=== PATIENT | female | born 1965 | race Two or more races ===

== ENCOUNTER 2017-12-21 19:23 | Emergency (ER) | payer OTHER ==
[~2017-12-21] VITALS: Ht 154.9 cm; Wt 67.8 kg
[2017-12-21 19:25] VITALS: BP 134/77
[2017-12-21] MEDS ORDERED: METHOCARBAMOL 750 MG TABLET ONE (21:03)
[2017-12-21] MEDS ORDERED: KETOROLAC 30 MG/1 ML ONE (21:03)
[2017-12-21] MEDS ORDERED: KETOROLAC 30 MG/1 ML IM ONE (21:30)
[2017-12-21] MEDS ORDERED: METHOCARBAMOL 750 MG TABLET PO ONE (21:30)
== END 2017-12-21 21:37 | disposition home or self-care (01) ==
LOC: ED 21:20
DX: S39.012A Strain of muscle, fascia and tendon of lower back, initial encounter (principal); M54.42 Lumbago with sciatica, left side; X58.XXXA Exposure to other specified factors, initial encounter; Y93.89 Activity, other specified; Y92.89 Other specified places as the place of occurrence of the external cause; Y99.8 Other external cause status
CPT/HCPCS: 72110; 96372; 99284; J1885

== ENCOUNTER 2021-04-05 12:08 | Emergency (ER) | payer SELFPAY ==
[~2021-04-05] VITALS: Ht 152.4 cm; Wt 66.9 kg
[2021-04-05 12:19] VITALS: BP 122/70
--- NOTE | 2021-04-05 13:11 | NUR ---
NO ANSWER WHEN CALLED FOR A ROOM AT THIS TIME.
--- NOTE | 2021-04-05 13:45 | NUR ---
NO ANS X 2
--- NOTE | 2021-04-05 14:03 | NUR ---
NO ANS X 3. LWBS.
== END 2021-04-05 14:04 | disposition left against medical advice (07) ==
LOC: ED 12:30
DX: M25.512 Pain in left shoulder (principal); M25.511 Pain in right shoulder; Z53.21 Procedure and treatment not carried out due to patient leaving prior to being seen by health care provider